=== PATIENT | female | born 1970 ===

== ENCOUNTER 2016-08-28 02:35 | Emergency (ER) | payer MEDICAID ==
[2016-08-28 02:56] VITALS: PULSE 93; RESP 18
[2016-08-28] MEDS ORDERED: Sodium Chloride 0.9% 1,000 ML IV ONE (03:05)
--- NOTE | 2016-08-28 03:05 | C.PDOC ---
History Of Present Illness Patient presents to the ED with complaints of nausea and sharp, cramping lower abdominal pain. Patient began gabapentin and notes taking one this morning with no relief, prompting visit. Patient states she feels anxious but denies any fever, chills, or diarrhea. Time Seen by Provider: 08/28/16 03:05 Chief Complaint (Nursing): Abdominal Pain History Per: Patient History/Exam Limitations: no limitations Onset/Duration Of Symptoms: Hrs Current Symptoms Are (Timing): Still Present Severity: Moderate Pain Scale Rating Of: 4 Location Of Pain/Discomfort: RLQ, LLQ Radiation Of Pain To:: None Quality Of Discomfort: Sharp, Cramping Associated Symptoms: Nausea. denies: Fever, Chills, Diarrhea Exacerbating Factors: None Recent travel outside of the [place]: No Abnormal Vaginal Bleeding: No Past Medical History Reviewed: Historical Data, Nursing Documentation, Vital Signs Vital Signs: Last Vital Signs Temp 99.7 F H 08/28/16 02:50 Pulse 93 H 08/28/16 02:50 Resp 18 08/28/16 02:50 BP 123/75 08/28/16 02:50 Pulse Ox 99 08/28/16 03:47 - Medical History PMH: Anxiety, Asthma, Bipolar Disorder, Depression - [facility] Procedures INDIVID PSYCHOTHERAP NEC (04/01/13) OTHER GROUP THERAPY (04/01/13) TETANUS TOXOID ADMINIST (08/22/14) Family History: States: No Known Family Hx - Social History Hx Tobacco Use: Yes Hx Alcohol Use: No Hx Substance Use: No - Immunization History Hx Tetanus Toxoid Vaccination: No Hx Influenza Vaccination: No Hx Pneumococcal Vaccination: No Review Of Systems Constitutional: Negative for: Fever, Chills Cardiovascular: Negative for: Chest Pain, Palpitations Respiratory: Negative for: Cough, Shortness of Breath Gastrointestinal: Positive for: Nausea, Abdominal Pain. Negative for: Diarrhea Psych: Positive for: Anxiety Physical Exam - Physical Exam Appears: Non-toxic, No Acute Distress, Other (Patient is anxious ) Skin: Warm, Dry Oral Mucosa: Moist Neck: Supple Chest: Symmetrical, No Deformity Cardiovascular: Rhythm Regular Respiratory: No Rales, No Rhonchi, No Wheezing Gastrointestinal/Abdominal: Soft, Tenderness (Abdominal discomfort ), No Distention, No Guarding, No Rebound Extremity: Normal ROM, No Tenderness Neurological/Psych: Oriented x3 ED Course And Treatment - Laboratory Results Result Diagrams: 08/28/16 03:33 08/28/16 03:33 O2 Sat by Pulse Oximetry: 99 (room air ) Pulse Ox Interpretation: Normal Reevaluation Time: 06:22 Reassessment Condition: Improved Disposition Counseled Patient/Family Regarding: Studies Performed, Diagnosis, Need For Followup, Rx Given - Disposition Referrals: Rajani Rg MD [Medical Doctor] - Disposition: HOME/ ROUTINE Disposition Time: 03:05 Condition: FAIR Prescriptions: Dicyclomine [Dicyclomine HCl] 10 mg PO QID #20 cap Instructions: Abdominal Pain (ED), Gas and Bloating (ED) - Clinical Impression Clinical Impression: Abdominal pain, Constipation - Scribe Statement The provider has reviewed the documentation as recorded by the Scribe Naty Acevedo All medical record entries made by the Terrenceibe were at my direction and personally dictated by me. I have reviewed the chart and agree that the record accurately reflects my personal performance of the history, physical exam, medical decision making, and the department course for this patient. I have also personally directed, reviewed, and agree with the discharge instructions and disposition.
[2016-08-28 03:08] LABS: SQUAMOUS EPITHIAL 1 /hpf (0-5); URINE BILIRUBIN NEGATIVE (NEGATIVE); URINE BLOOD NEGATIVE (NEGATIVE); URINE CLARITY Clear (Clear); URINE COLOR Straw (YELLOW); URINE GLUCOSE (UA) NORMAL (Normal); URINE LEUKOCYTE ESTERASE NEG Leu/uL (Negative); URINE NITRATE NEGATIVE (NEGATIVE); URINE PROTEIN NEGATIVE (NEGATIVE); URINE UROBILINOGEN NORMAL mg/dL (0.2-1.0)
[2016-08-28 03:10] LABS: HCG,QUALITATIVE URINE NEGATIVE (NEGATIVE)
[2016-08-28 03:36] LABS: BASO % 0.2 % (0.0-2.0); EOS % 0.3 % (0.0-4.0); HEMOGLOBIN 11.7 g/dL (11.0-16.0); LYMPH # 0.6 K/uL (1.0-4.3); LYMPH % 6.8 % (20.0-40.0); MEAN CELL VOLUME 92.1 fL (81.0-99.0); MEAN CORPUSCULAR HEMOGLOBIN 30.9 pg (27.0-31.0); MEAN CORPUSCULAR HGB CONC 33.5 g/dL (33.0-37.0); MEAN PLATELET VOLUME 10.1 fL (7.2-11.7); MONO # 0.2 K/uL (0.0-0.8); MONO % 2.4 % (0.0-10.0); NEUT # 7.4 K/uL (1.8-7.0); NEUT % 90.3 % (50.0-75.0); PLATELET COUNT 140 K/uL (130-400); RBC 3.79 Mil/uL (3.80-5.20); RED CELL DISTRIBUTION WIDTH 13.6 % (11.5-14.5); WHITE BLOOD COUNT 8.2 K/uL (4.8-10.8)
[2016-08-28] MEDS ORDERED: Sodium Chloride 0.9% 1,000 ML ONE (03:38)
[2016-08-28 03:50] LABS: ALBUMIN 3.6 g/dL (3.5-5.0)
[2016-08-28 03:53] LABS: ALB/GLOB RATIO 1.2 (1.0-2.1); GFR AFRICAN-AMERICAN > 60; GFR NON-AFRICAN AMERICAN > 60
[2016-08-28 04:04] LABS: ALT/SGPT 17 U/L (9-52); AST/SGOT 45 U/L (14-36); BLOOD UREA NITROGEN 4 mg/dL (7-17); CALCIUM 8.7 mg/dl (8.6-10.4); LIPASE 47 U/L (23-300)
[2016-08-28 04:19] LABS: ANISOCYTOSIS MODERATE; LYMPHOCYTE 10 % (20-40); MONOCYTE 4 % (0-10); NEUTROPHIL 86 % (50-75); PLATELET ESTIMATE NORMAL (NORMAL); POIKILOCYTOSIS MODERATE; TOTAL CELLS COUNTED 100
[2016-08-28 06:50] VITALS: BP 117/68; TEMP 99.6; O2SAT 100
== END 2016-08-28 06:49 | disposition home or self-care (01) ==
LOC: C.ER 02:35
DX: K59.00 Constipation, unspecified (principal)
CPT/HCPCS: 80053; 81001; 83690; 84703; 85025; 96361; 96374; 99284; J1885; J7040

== ENCOUNTER 2017-08-05 | Emergency (ER) | payer MEDICAID, OTHER ==
[2017-08-05] VITALS: BMI 23.8
[2017-08-05 00:07] VITALS: BP 142/84; PULSE 72; RESP 16; TEMP 97.7; O2SAT 100
[2017-08-05] MEDS ORDERED: Naproxen 550 mg Tab PO STA (00:48)
[2017-08-05] MEDS ORDERED: Naproxen 550 mg Tab PO ONE (00:51)
--- NOTE | 2017-08-05 01:03 | C.PDOC ---
History Of Present Illness 47 year old female presents to the ED c/o right upper back pain that worsens with movement. Patient states she has been recently lifting heavy boxes at work and think she might have pulled a muscle. Patient reports she took 1 Ibuprofen last night with minimal relief. Patient denies injury, fall, trauma, weakness, numbness, CP, SOB. Time Seen by Provider: 08/05/17 00:36 Chief Complaint (Nursing): Upper Extremity Problem/Injury History Per: Patient History/Exam Limitations: no limitations Onset/Duration Of Symptoms: Days Current Symptoms Are (Timing): Still Present Quality: "Pain" Exacerbating Factor(s): Strenuous Use Of Affected Area, Movement Recent travel outside of the [place]: No Additional History Per: Patient Past Medical History Reviewed: Historical Data, Nursing Documentation, Vital Signs Vital Signs: Last Vital Signs Temp 97.7 F 08/05/17 00:05 Pulse 72 08/05/17 00:05 Resp 16 08/05/17 00:05 BP 142/84 08/05/17 00:05 Pulse Ox 100 08/05/17 02:40 - Medical History PMH: Anxiety, Asthma, Bipolar Disorder, Depression Denies: Chronic Kidney Disease Surgical History: No Surg Hx - [facility] Procedures INDIVID PSYCHOTHERAP NEC (04/01/13) OTHER GROUP THERAPY (04/01/13) TETANUS TOXOID ADMINIST (08/22/14) Family History: States: Unknown Family Hx - Social History Hx Tobacco Use: Yes Hx Alcohol Use: No Hx Substance Use: No - Immunization History Hx Tetanus Toxoid Vaccination: No Hx Influenza Vaccination: No Hx Pneumococcal Vaccination: No Review Of Systems Constitutional: Negative for: Fever, Chills Cardiovascular: Negative for: Chest Pain Respiratory: Negative for: Shortness of Breath Musculoskeletal: Positive for: Shoulder Pain, Arm Pain Skin: Negative for: Rash Neurological: Negative for: Weakness, Numbness Physical Exam - Physical Exam Appears: Non-toxic, No Acute Distress Skin: Normal Color, Warm, Dry Head: Atraumatic, Normacephalic Eye(s): bilateral: Normal Inspection Oral Mucosa: Moist Neck: Normal ROM, Supple Chest: Symmetrical Cardiovascular: Rhythm Regular Respiratory: Normal Breath Sounds, No Rales, No Rhonchi, No Wheezing Gastrointestinal/Abdominal: Soft, No Tenderness, No Guarding, No Rebound Back: Other (right scapular area tenderness) Extremity: Normal ROM, Capillary Refill (<2 seconds), No Swelling Extremity: Bilateral: Atraumatic, Normal Color And Temperature Pulses: Left Radial: Normal, Right Radial: Normal Neurological/Psych: Oriented x3, Normal Speech, Normal Motor, Normal Sensation Gait: Steady ED Course And Treatment O2 Sat by Pulse Oximetry: 100 (ON RA) Pulse Ox Interpretation: Normal Progress Note: Plan: - Naproxe 550 mg PO. - Valium 5 mg PO. On reassessment, patient is resting comfortably, and is in no acute distress. Patient was instructed to follow up with physician/clinic in 1-2 days for further evaluation. Disposition Counseled Patient/Family Regarding: Diagnosis, Need For Followup - Disposition Referrals: [facility] [Outside] Disposition: HOME/ ROUTINE Disposition Time: :01 Condition: STABLE Additional Instructions: Please follow up with PMD Take medications as directed Return to ER if worse Prescriptions: Cyclobenzaprine [Cyclobenzaprine HCl] 10 mg PO HS #7 tab Naproxen [Naprosyn] 1 tab PO BID PRN #20 tab PRN Reason: Pain Instructions: Muscle Strain (DC) Forms: [email or web address] (Romanian), Work Excuse - Clinical Impression Clinical Impression: Upper back pain on right side - 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 - Scribe Statement The provider has reviewed the documentation as recorded by the Scribe Jose Wood All medical record entries made by the Scribe were at my direction and personally dictated by me. I have reviewed the chart and agree that the record accurately reflects my personal performance of the history, physical exam, medical decision making, and the department course for this patient. I have also personally directed, reviewed, and agree with the discharge instructions and disposition.
== END 2017-08-05 01:07 | disposition home or self-care (01) ==
LOC: C.ER
DX: M54.9 Dorsalgia, unspecified (principal); Z72.0 Tobacco use

== ENCOUNTER 2017-08-14 00:17 | Emergency (ER) | payer SELFPAY ==
[2017-08-14 00:18] VITALS: BMI 23.8
[2017-08-14 00:34] VITALS: RESP 18; O2SAT 98
--- NOTE | 2017-08-14 00:40 | C.PDOC ---
History Of Present Illness presents with b/l ear pain sore throat for about 3 days. Some fever, tolerating po. Subtherapeutic dose of ibrupofen(400 mg) taken with partial relief Time Seen by Provider: 08/14/17 00:40 Chief Complaint (Nursing): Flu-like Symptoms History Per: Patient History/Exam Limitations: no limitations Onset/Duration Of Symptoms: Days Current Symptoms Are (Timing): Still Present Location Of Pain: Ear(s) Sick Contacts (Context): None Associated Symptoms: Fever, Sore Throat. denies: Neck Pain, Nasal Congestion, Vomiting, Diarrhea Ear Symptoms: Left: Ear Fullness, Bilateral: Ear Pain Severity: Moderate Pain Scale Rating Of: 4 Recent travel outside of the [place]: No Additional History Per: Patient Past Medical History Reviewed: Historical Data, Nursing Documentation, Vital Signs Vital Signs: Last Vital Signs Temp 98.1 F 08/14/17 00:27 Pulse 78 08/14/17 00:27 Resp 18 08/14/17 00:27 BP 126/79 08/14/17 00:27 Pulse Ox 98 08/14/17 00:40 - Medical History PMH: Anxiety, Asthma, Bipolar Disorder, Depression Denies: Chronic Kidney Disease - [facility] Procedures INDIVID PSYCHOTHERAP NEC (04/01/13) OTHER GROUP THERAPY (04/01/13) TETANUS TOXOID ADMINIST (08/22/14) Family History: States: No Known Family Hx - Social History Hx Tobacco Use: Yes Hx Alcohol Use: Yes Hx Substance Use: No - Immunization History Hx Tetanus Toxoid Vaccination: No Hx Influenza Vaccination: No Hx Pneumococcal Vaccination: No Review Of Systems Constitutional: Positive for: Fever. Negative for: Chills Eyes: Negative for: Vision Change ENT: Positive for: Ear Pain, Throat Pain (mild). Negative for: Nose Pain Respiratory: Negative for: Cough, Shortness of Breath Musculoskeletal: Negative for: Back Pain Neurological: Negative for: Weakness Psych: Negative for: Anxiety Physical Exam - Physical Exam Appears: Non-toxic Skin: Warm, Dry Ear(s): Left: TM Dull, Bilateral: TM Erythema Nose: Normal Oral Mucosa: Moist Throat: No Erythema, No Exudate Neck: Supple Chest: Symmetrical Cardiovascular: Rhythm Regular Respiratory: No Rales, No Rhonchi, No Wheezing Neurological/Psych: Oriented x3 Gait: Steady ED Course And Treatment O2 Sat by Pulse Oximetry: 98 Pulse Ox Interpretation: Normal Disposition Counseled Patient/Family Regarding: Studies Performed, Diagnosis, Need For Followup, Rx Given - Disposition Referrals: [facility] [Outside] Fabian Velásquez MD [Staff Provider] - Disposition: HOME/ ROUTINE Disposition Time: 00:40 Condition: FAIR Additional Instructions: Please return if symptoms recur Prescriptions: Amoxicillin 1,000 mg PO TID #21 tablet Ibuprofen [Motrin Tab] 800 mg PO TID PRN #15 tab PRN Reason: Pain, Moderate (4-7) Instructions: Ear Infections (Otitis Media) (DC) Forms: [employer] (Sinhala) - Clinical Impression Clinical Impression: Otitis media
[2017-08-14 01:36] VITALS: BP 128/89; PULSE 72; TEMP 98.5
== END 2017-08-14 01:22 | disposition home or self-care (01) ==
LOC: C.ER 00:17
DX: H66.93 Otitis media, unspecified, bilateral (principal)

== ENCOUNTER 2017-08-26 16:35 | Emergency (ER) | payer OTHER ==
[2017-08-26 17:00] VITALS: BMI 24.7
[2017-08-26 17:03] VITALS: O2SAT 100
[2017-08-26] MEDS ORDERED: Lidocaine 5% Patch TD STA (17:19)
[2017-08-26] MEDS ORDERED: Lidocaine 5% Patch TD ONE (17:31)
--- NOTE | 2017-08-26 17:49 | C.PDOC ---
History Of Present Illness 47 year old female presents to the ED complaining of right upper back and shoulder pain that worsens with movement. Patient states she has been recently lifting heavy boxes at work and think she might have pulled a muscle. Patient reports she was seen in ED last week and given prescriptions, the muscle relaxant was too strong and made her sleepy so she stopped taking it. Patient denies any new injury, fall, trauma, weakness, numbness, CP, SOB. Time Seen by Provider: 08/26/17 17:13 Chief Complaint (Nursing): Upper Extremity Problem/Injury History Per: Patient History/Exam Limitations: no limitations Onset/Duration Of Symptoms: Days Current Symptoms Are (Timing): Still Present Recent travel outside of the [place]: No Additional History Per: Patient Past Medical History Reviewed: Historical Data, Nursing Documentation, Vital Signs Vital Signs: Last Vital Signs Temp 98.9 F 08/26/17 18:01 Pulse 72 08/26/17 18:01 Resp 18 08/26/17 18:01 BP 146/88 08/26/17 18:01 Pulse Ox 100 08/26/17 18:19 - Medical History PMH: Anxiety, Asthma, Bipolar Disorder, Depression Denies: Chronic Kidney Disease Surgical History: No Surg Hx - [facility] Procedures INDIVID PSYCHOTHERAP NEC (04/01/13) OTHER GROUP THERAPY (04/01/13) TETANUS TOXOID ADMINIST (08/22/14) Family History: States: Unknown Family Hx - Social History Hx Tobacco Use: Yes Hx Alcohol Use: Yes Hx Substance Use: No - Immunization History Hx Tetanus Toxoid Vaccination: No Hx Influenza Vaccination: No Hx Pneumococcal Vaccination: No Review Of Systems Constitutional: Negative for: Fever, Chills Cardiovascular: Negative for: Chest Pain Respiratory: Negative for: Shortness of Breath Gastrointestinal: Negative for: Nausea, Vomiting Musculoskeletal: Positive for: Shoulder Pain, Back Pain Skin: Negative for: Rash Neurological: Negative for: Weakness, Numbness, Headache Physical Exam - Physical Exam Appears: Non-toxic, No Acute Distress Skin: Normal Color, Warm, Dry Head: Atraumatic, Normacephalic Eye(s): bilateral: Normal Inspection Neck: Normal ROM, No Midline Cervical Tenderness, Supple Chest: Symmetrical Cardiovascular: Rhythm Regular Respiratory: Normal Breath Sounds, No Rales, No Rhonchi, No Wheezing Back: Other (right trapezius tenderness) Extremity: Normal ROM (pain with abduction right shoulder), No Tenderness, Capillary Refill (< 2 seconds), No Swelling Pulses: Left Radial: Normal, Right Radial: Normal Neurological/Psych: Oriented x3, Normal Speech, Normal Motor, Normal Sensation Gait: Steady ED Course And Treatment O2 Sat by Pulse Oximetry: 100 (On RA) Pulse Ox Interpretation: Normal Medical Decision Making Medical Decision Making: Impression: right upper back and shoulder pain Plan: * Lidoderm patch * Toradol 60 mg IM On re-eval the patient reports pain has improved. Patient asking for work note for few days Disposition Counseled Patient/Family Regarding: Diagnosis, Need For Followup - Disposition Referrals: [facility] [Outside] [facility] [Outside] [facility] [Outside] Disposition: HOME/ ROUTINE Disposition Time: 18:35 Condition: GOOD Additional Instructions: Take Ibuprofen or Naproxen for pain every 6-8 hours Apply heat or ice to area Instructions: Shoulder Pain (DC) Forms: [facility] (Wolof), Work Excuse Print Language: MAURITIAN - POA Present On Arrival: None - Clinical Impression Clinical Impression: Upper back pain on right side - 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 - Scribe Statement The provider has reviewed the documentation as recorded by the Scribe Jose Wood All medical record entries made by the Terrenceibe were at my direction and personally dictated by me. I have reviewed the chart and agree that the record accurately reflects my personal performance of the history, physical exam, medical decision making, and the department course for this patient. I have also personally directed, reviewed, and agree with the discharge instructions and disposition.
[2017-08-26 18:02] VITALS: BP 146/88; PULSE 72; RESP 18; TEMP 98.9
== END 2017-08-26 18:37 | disposition home or self-care (01) ==
LOC: C.ER 16:35
DX: M54.6 Pain in thoracic spine (principal); Z72.0 Tobacco use
CPT/HCPCS: 96372; 99284; J1885